=== PATIENT | female | born 1975 | race Hispanic/Latino ===

== ENCOUNTER 2017-06-17 13:11 | Emergency (ER) | payer SELFPAY, OTHER ==
[2017-06-17] MEDS ORDERED: Ketorolac Tromethamine 60 MG/2 ML VIAL ONE (14:09)
--- NOTE | 2017-06-17 15:56 | RAD ---
EXAM: CHEST 2 VIEWS: History Chest pain. COMPARISON: None. FINDINGS: Normal cardiac silhouette. The pulmonary vessels and hilum are normal. No consolidation or mass. N o pneumothorax or osseous abnormalities. IMPRESSION: No acute cardiopulmonary process. POS: [facility]
--- NOTE | 2017-06-17 17:18 | RAD ---
LEFT HUMERUS TWO VIEWS: 06/17/17 HISTORY: Pain in humerus. There is no signs of fracture. The joint spaces are unremarkable. No lytic or blastic bony change. IMPRESSION: Unremarkable left humerus. POS: [facility]
--- NOTE | 2017-07-12 13:03 | EKG ---
Test Reason : CP Blood Pressure : / mmHG Vent. Rate : 095 BPM Atrial Rate : 095 BPM P-R Int : 182 ms QRS Dur : 078 ms QT Int : 346 ms P-R-T Axes : 056 064 025 degrees QTc Int : 434 ms Normal sinus rhythm No STEMI Normal ECG Confirmed by FAUSTINA BOJORQUEZ ([id number]), non linear editor KAROLINE ZEPEDA ([id number] on 07/12/2017 1:03:11 PM Referred By: Confirmed By:FAUSTINA BOJORQUEZ
== END 2017-06-17 17:09 | disposition home or self-care (01) ==
LOC: ERS 13:11
DX: R07.9 Chest pain, unspecified (principal); M79.602 Pain in left arm; I10 Essential (primary) hypertension; V43.52XA Car driver injured in collision with other type car in traffic accident, initial encounter; W22.10XA Striking against or struck by unspecified automobile airbag, initial encounter
CPT/HCPCS: 71020; 93005; 96372; J1885

== ENCOUNTER 2018-10-16 06:28 | Emergency (ER) | payer BC, OTHER, SELFPAY ==
[2018-10-16] MEDS ORDERED: Metoclopramide HCl 10 MG/2 ML VIAL ONE (06:47)
[2018-10-16] MEDS ORDERED: Dicyclomine 20 MG TAB ONE (06:47)
[2018-10-16] MEDS ORDERED: Methocarbamol 1 GM in Sodium Chloride 0.9% 250 ML 250 ML IVPB SCH (07:00)
[2018-10-16 07:28] LABS: Bilirubin Negative (Negative); Blood, Urine Negative (Negative); Clarity CLEAR (Clear); Glucose, Urine (Dipstick) Negative (Negative); Leukocyte Negative (Negative); Nitrite Negative (Negative); Protein, Urine (Dipstick) Negative (Neg-Trace); Specific Gravity, Urine 1.022 (1.002-1.036); Urobilinogen 0.2 mg/dL (0.2-1.0); pH, Urine 6.5 (5.0-9.0)
[2018-10-16 07:35] LABS: #Eosinphils 0.3 thou/uL (0.0-0.7); #Monocytes 0.8 thou/uL (0.11-0.59); #Neutrophils 7.7 thou/uL (1.40-6.50); %Basophils 0.3 % (0.0-1.0); %Eosinophils 2.7 % (0.0-10.0); %Lymphocytes 18.7 % (21.0-51.0); %Monocytes 7.4 % (0.0-10.0); %Neutrophils 70.9 % (42.0-75.0); Hemoglobin 14.7 g/dL (12.0-16.0); Mean Corpuscular Hemoglobin 31.3 pg (27.0-31.0); Mean Corpuscular Volume 92.1 fL (78.0-98.0); Mean Platelet Volume 8.7 fL (7.4-10.4); Platelet Count 246 thou/uL (130-400); RBC Distribution Width 11.4 % (11.5-14.5); White Blood Cell (WBC) Count 10.8 thou/uL (4.8-10.8)
[2018-10-16 07:37] LABS: BHCG - Serum Negative (NEGATIVE); Pregs Control Background? CLEAR/WHITE (CLR/WHITE); Pregs Control Bar Appear? YES (CONTROL BAR)
[2018-10-16 07:46] LABS: ALT (SGPT) 16 U/L (8-55); AST (SGOT) 15 U/L (5-34); Albumin 4.1 g/dL (3.5-5.0); Alkaline Phosphatase 66 U/L (40-150); Anion Gap 12 mmol/L (10-20); BUN (Urea Nitrogen) 15 mg/dL (7.0-18.7); Bilirubin, Total 0.2 mg/dL (0.2-1.2); Calc. Creatinine Clearance 0 mL/min (70-130); Calcium 9.4 mg/dL (7.8-10.44); Carbon Dioxide 25 mmol/L (22-29); Chloride 107 mmol/L (98-107); Estimated GFR-MDRD Greater than 90; Globulin 3.3 g/dL (2.4-3.5); Glucose 102 mg/dL (70-105); Potassium 3.5 mmol/L (3.5-5.1); Protein, Total 7.4 g/dL (6.0-8.3); Sodium 140 mmol/L (136-145)
[2018-10-16] MEDS ORDERED: ISOVUE-370 76%-LOCM 1 ML ONE (08:01)
[2018-10-16] MEDS ORDERED: Ketorolac Tromethamine 30 MG/ML VIAL ONE (08:43)
--- NOTE | 2018-10-16 09:26 | CT ---
CT OF THE ABDOMEN AND PELVIS WITH IV CONTRAST: INDICATION: History of right lower quadrant abdominal pain and flank pain with back pain. COMPARISON: None. FINDINGS: There is a normal appendix in the right lower quadrant of the abdomen. A small amount of gas is pres ent within the bladder. No hydronephrosis is evident. There is mild bibasilar atelectasis. The liver, pancreas, adrenal glands, and spleen appear within normal limits. No focal renal lesion i s evident. No free fluid or enlarged lymph nodes are evident. There is a mild amount of retained stool within the colon. No free fluid is evident within the pelvis. No definite acute osseous abnormality is evident. IMPRESSION: 1. No CT explanation for the patient's abdominal pain or flank pain. 2. Small amount of gas within the bladder may reflect the sequelae of a recent instrumentation such as catheterization. Recommend correlation. Urinary tract infection cannot be entirely excluded. POS: [facility]
== END 2018-10-16 09:30 | disposition home or self-care (01) ==
LOC: ERS 06:28
DX: M62.830 Muscle spasm of back (principal); I10 Essential (primary) hypertension; Z79.899 Other long term (current) drug therapy
CPT/HCPCS: 74177; 80053; 81003; 84703; 85025; 87086; 96365; 96366; 96367; 96375; J1885; J2765; J2800; J7050; Q9966

== ENCOUNTER 2019-01-17 16:31 | Emergency (ER) | payer BC ==
[2019-01-17] MEDS ORDERED: Adacel (T-DAP) 0.5 ML SYRINGE ONE (18:20)
== END 2019-01-17 19:15 | disposition home or self-care (01) ==
LOC: ERS 16:31
DX: S71.111A Laceration without foreign body, right thigh, initial encounter (principal); I10 Essential (primary) hypertension; Z23 Encounter for immunization; W25.XXXA Contact with sharp glass, initial encounter
CPT/HCPCS: 12002; 90471; 90715